=== PATIENT | female | born 1970 | race Caucasian/White ===

== ENCOUNTER 2022-09-27 04:14 | Day surgery (SDC) | payer BC ==
[2022-09-24 10:28] VITALS: BMI 36.6
[2022-09-27] MEDS ORDERED: ROPIVACAINE HCL 0.5% 30ML VIAL ONE (09:40)
[2022-09-27] MEDS ORDERED: LIDOCAINE HCL/PF 2% SDV 5ML VIAL ONE (09:41)
[2022-09-27] MEDS ORDERED: PROPOFOL 60 ML ONE (09:41)
[2022-09-27] MEDS ORDERED: MIDAZOLAM HCL 2 MG/2 ML SINGLE DOSE VIAL ONE (09:41)
[2022-09-27] MEDS ORDERED: SEVOFLURANE 250 ML BTL ONE (11:12)
[2022-09-27] MEDS ORDERED: ceFAZolin SODIUM 1 GM VIAL ONE (11:43)
[2022-09-27] MEDS ORDERED: DEXAMETHASONE SOD PHOSPHATE 4 MG/1 ML VIAL ONE (11:43)
[2022-09-27] MEDS ORDERED: ceFAZolin SODIUM 1 GM VIAL IVPB ONE (11:45)
[2022-09-27] MEDS ORDERED: LACTATED RINGERS SOLUTION 1,000 ML IV SCH (13:30)
[2022-09-27] MEDS ORDERED: ONDANSETRON 4 MG/2 ML VIAL IVPUSH PRN (13:30)
[2022-09-27] MEDS ORDERED: oxyCODONE HCL 5 MG TABLET PO PRN (13:30)
[2022-09-27 16:37] VITALS: BP 113/74; PULSE 105; RESP 16; TEMP 97.1
== END 2022-09-27 16:30 | disposition home or self-care (01) ==
LOC: JASU-SURG 04:14
PROVIDERS: ATTEND Orthopaedic Surgery
PROC: 0LN60ZZ Release Left Lower Arm and Wrist Tendon, Open Approach (ICD-10-PCS; 2022-09-27)
PROC: 0PSJ04Z Reposition Left Radius with Internal Fixation Device, Open Approach (ICD-10-PCS; principal; 2022-09-27 11:00)
DX: S52.572A Other intraarticular fracture of lower end of left radius, initial encounter for closed fracture (principal); X58.XXXA Exposure to other specified factors, initial encounter; Y92.9 Unspecified place or not applicable; Y93.9 Activity, unspecified
CPT/HCPCS: 25001; 25609; C1713; 76000-TC-FY; 81025; 94760